=== PATIENT | male | born 1985 | race Caucasian/White ===

== ENCOUNTER 2020-04-16 09:10 | Emergency (ER) | payer OTHER ==
[~2020-04-16] VITALS: Ht 177.8 cm; Wt 89.2 kg
[2020-04-16] MEDS ORDERED: CLIN150C15 PO (09:34)
[2020-04-16] MEDS ORDERED: NS 1,000 ML IV ONE (10:00)
[2020-04-16] MEDS ORDERED: ISOVUE-370 76% 100ML VIAL As Ordered ONE (10:59)
[2020-04-16 11:11] LABS: BASO % 0.7 % (0.0-1.0); EOS # 0.1 10^3/uL (0.0-0.5); EOS % 2.3 % (0.0-3.0); HEMATOCRIT 45.6 % (42.0-52.0); HEMOGLOBIN 15.4 g/dl (13.5-17.5); LYMPH # 0.9 10^3/uL (1.5-5.0); LYMPH % 14.3 % (24.0-44.0); MEAN CORPUSCULAR HEMOGLOBIN 29.9 pg (27.0-33.0); MEAN CORPUSCULAR HGB CONC 33.8 g/dl (32.0-36.5); MEAN CORPUSCULAR VOLUME 88.5 fl (80.0-96.0); MONO # 0.5 10^3/uL (0.0-0.8); MONO % 8.5 % (0.0-5.0); NEUTROPHILS # 4.5 10^3/uL (1.5-8.5); PLATELET COUNT, AUTOMATED 281 10^3/uL (150-450); RED BLOOD COUNT 5.15 10^6/uL (4.30-6.10)
--- NOTE | 2020-04-16 11:19 | REP ---
INDICATION: umbilical mass and drainage; right flank pain w stones. COMPARISON: None TECHNIQUE: Axial contrast-enhanced images from the lung bases to the pubic symphysis using 100 cc Isovue 370 intravenous contrast material. Precontrast images of the abdomen along with coronal and sagittal reformations obtained. This CT examination was performed using the following dose reduction techniques: Automated exposure control, adjustment of mA and/or kv according to the patient's size, and the use of iterative reconstruction technique. FINDINGS: There is a 1.4 x 2.0 x 1.2 cm rim enhancing fluid collection in the periumbilical subcutaneous tissue with surrounding inflammatory stranding consistent with small abscess. There is mild right hydronephrosis and proximal hydroureter with 6 mm obstructing calculus and 3 mm calculus. Bilateral nonobstructing intrarenal calculi are identified measuring up to 6 mm. No associated perinephric stranding and no obstructing left ureteral calculus identified. Liver, spleen, pancreas, gallbladder, bilateral adrenal glands are normal. The enteric system is unremarkable. Normal terminal ileum and appendix identified in the right lower quadrant. Pelvis demonstrates normal bladder and age-appropriate prostate/seminal vesicles. No ascites. No adenopathy. Abdominal aorta and vasculature normal. Musculoskeletal structures are intact. IMPRESSION: 1. Small periumbilical abscess. 2. Early acute right-sided obstructive uropathy along with bilateral nonobstructing renal calculi. <Electronically signed by Hermelindo Ramsey > 04/16/20 0749
[2020-04-16 11:36] LABS: ALBUMIN 3.9 GM/DL (3.2-5.2); BILIRUBIN,DIRECT 0.1 MG/DL (0.0-0.2); BILIRUBIN,TOTAL 0.5 MG/DL (0.2-1.0); TOTAL PROTEIN 6.9 GM/DL (6.4-8.2)
[2020-04-16] MEDS ORDERED: NORC1TAB7 PO (13:33)
[2020-04-16] MEDS ORDERED: BACT800T5 PO (13:33)
[2020-04-16] MEDS ORDERED: IBUP-1022 PO (13:38)
[2020-04-16 13:45] VITALS: BP 122/73
--- NOTE | 2020-04-18 14:50 | ED PDOC ---
Post-Departure Follow-Up ct abd/p faxed to dr cloud for fu Marla Joradn MD Apr 18, 2020 14:50
== END 2020-04-16 14:04 | disposition home or self-care (01) ==
LOC: M ED 09:10
DX: L02.216 Cutaneous abscess of umbilicus (principal); N23 Unspecified renal colic; N20.0 Calculus of kidney; Z87.442 Personal history of urinary calculi
CPT/HCPCS: 74178; 80047; 80076; 81001; 82150; 83690; 85025; 87040; 87070; 87077; 87186; 93041; 96360; 99284; Q9967

== ENCOUNTER 2020-05-16 13:02 | Emergency (ER) | payer OTHER ==
[~2020-05-16] VITALS: Ht 177.8 cm; Wt 89.5 kg
[~2020-05-16 13:02] MED LIST: BACT800T5 PO; CLIN150C15 PO; IBUP-1022 PO; NORC1TAB7 PO
--- OUTSIDE RECORDS SUMMARY | 2020-05-16 13:08 | CCD | Continuity of Care Document ---
Author Author Tomasz COLUNGA DO Organization Unknown Address [address], [address] [place] [address] Phone [phone] Care Team Providers Care Rescue Worker Name Role Phone Bakari Beasley Unavailable Problems Description No Information Available Social History Type Date Description Comments Sex Unknown ETOH Use 3-6 A Week Tobacco Use Start: Unknown Denies Smoking Recreational Drug Use Denies Drug Use Allergies, Adverse Reactions, Alerts Description No Known Drug Allergies Medications Active Medications SIG Qnty Indications Ordering Provide r Date Bactrim DS 800-160mg Tablets 1 tab by mouth twice a day 14tabs Manuel Colunga DO Immunizations Description No Information Available Vital Signs Date Vital Result Comment 05/01/2020 10:10am BP Systolic 120 mmHg BP Diastolic 80 mmHg Height 70 inches 5'10" Weight 198.00 lb BMI (Body Mass Index) 28.4 kg/m2 [place] Body Weight 166 lb Weight 89.813 kg BSA (Body Surface Area) 2.08 m2 04/19/2020 1:16pm BP Systolic 114 mmHg BP Diastolic 80 mmHg Height 70 inches 5'10" Weight 197.00 lb BMI (Body Mass Index) 28.3 kg/m2 [place] Body Weight 166 lb Weight 89.359 kg BSA (Body Surface Area) 2.07 m2 Results Description No Information Available Procedures Description No Information Available Medical Devices Description No Information Available Encounters Type Date Location Provider Dx Diagnosis Office Visit 04/19/2020 1:20p [facility] Manuel Colunga DO L72.3 Sebaceous cyst Assessments Date Code Description Provider 04/19/2020 L72.3 Sebaceous cyst Manuel Colunga DO Plan of Treatment 04/19/2020 - Manuel Colunga DO* L72.3 Sebaceous cyst* Comments:* 35y/o male presents with swelling superior to the umbilicus along with some drainage from the inside of the umbilicus. Currently this is actively draining and is improving on its own. It appears to be an epidermal cyst with communication th rough a sinus tract to the umbilicus. It could also be a urachal cyst, but that is less likely at this point given the location. I recommend that he continue with warm compresses and abx for now. If there is still concern about drainage on Thursday, then he can call me to have an I+D done. I also discussed elective resection once the inflammation has subsided, but he would like to wait on that for now. Follow up as needed. Functional Status Description No Information Available Mental Status Description No Information Available Referrals Refer to Reason for Referral Status Appt Date Manuel Colunga D.O. DRAINAE FROM UMBILICUS, POSS EPIDER MOID CYST Scheduled 04/19/[address] [place] [address] [phone]
--- OUTSIDE RECORDS SUMMARY | 2020-05-16 13:09 | CCD ---
Author Author [facility] Organization [facility] Address Unknown Phone Unavailable Care Team Providers Care Licensed Real Estate Broker Name Role Phone Diana, Ruthie Kaba PA-C Unavailable Unavailable Diana, Ruthie Kaba PA-C Unavailable Unavailable Diana, Ruthie Kaba PA-C Unavailable Unavailable Diana, Ruthie Kaba PA-C Unavailable Unavailable Diana, Ruthie Kaba PA-C Unavailable Unavailable Diana, Ruthie Kaba PA-C Unavailable Unavailable Diana, Ruthie Kaba PA-C Unavailable Unavailable Diana, Ruthie Kaba PA-C Unavailable Unavailable Diana, Ruthie Kaba PA-C Unavailable Unavailable Diana, Ruthie Kaba PA-C Unavailable Unavailable Diana, Ruthie Kaba PA-C Unavailable Unavailable BRYDEN, A THANIA DO Unavailable Unavailable BRYDEN, A THANIA DO Unavailable Unavailable BRYDEN, A THANIA DO Unavailable Unavailable BRYDEN, A THANIA DO Unavailable Unavailable BRYDEN, A THANIA DO Unavailable Unavailable BRYDEN, A THANIA DO Unavailable Unavailable BRYDEN, A THANIA DO Unavailable Unavailable BRYDEN, A THANIA DO Unavailable Unavailable BRYDEN, A THANIA DO Unavailable Unavailable BRYDEN, A THANIA DO Unavailable Unavailable BRYDEN, A THANIA DO Unavailable Unavailable BRYDEN, A THANIA DO Unavailable Unavailable BRYDEN, A THANIA DO Unavailable Unavailable BRYDEN, A THANIA DO Unavailable Unavailable BRYDEN, A THANIA DO Unavailable Unavailable BRYDEN, A THANIA DO Unavailable Unavailable BRYDEN, A THANIA DO Unavailable Unavailable BRYDEN, A THANIA DO Unavailable Unavailable BRYDEN, A THANIA DO Unavailable Unavailable BRYDEN, A THANIA DO Unavailable Unavailable BRYDEN, A THANIA DO Unavailable Unavailable BRYDEN, A THANIA DO Unavailable Unavailable BRYDEN, A THANIA DO Unavailable Unavailable BRYDEN, A THANIA DO Unavailable Unavailable BRYDEN, A THANIA DO Unavailable Unavailable BRYDEN, A THANIA DO Unavailable Unavailable BRYDEN, A THANIA DO Unavailable Unavailable ALEXUS Maryellen MONTEIRO DO Unavailable Unavailable Re-disclosure Warning The records that you are about to access may contain information from federally-assisted alcohol or drug abuse programs. If such information is present, then the following federally mandated warning applies: This information has been disclosed to you from records protected by federal confidentiality rules (42 CFR part 2). The federal rules prohibit you from making any further disclosure of this information unless further disclosure is expressly permitted by the written consent of the person to whom it pertains or as otherwise permitted by 42 CFR part 2. A general authorization for the release of medical or other information is NOT sufficient for this purpose. The Federal rules restrict any use of the information to criminally investigate or prosecute any alcohol or drug abuse patient.The records that you are about to access may contain highly sensitive health information, the redisclosure of which is protected by Article 27-F of the [facility] Public Health law. If you continue you may have access to information: Regarding HIV / AIDS; Provided by facilities licensed or operated by the [facility] Office of Mental Health; or Provided by the [facility] Office for People With Developmental Disabilities. If such information is present, then the following [facility] mandated warning applies: This information has been disclosed to you from confidential records which are protected by state law. State law prohibits you from making any further disclosure of this information without the specific written consent of the person to whom it pertains, or as otherwise permitted by law. Any unauthorized further disclosure in violation of state law may result in a fine or [place] health [facility] sentence or both. A general authorization for the release of medical or other information is NOT sufficient authorization for further disc losure. Encounters Encounter Providers Location Date Indications Data Source(s ) Outpatient Attender: THANIA Ramirez/Mariah/Julien/Rashid ndefrain 04/19/2020 12:20:00 PM [facility] ([facility] dina, ) Emergency Attender: Sesar Ortiz PA-C 04/2020 04:32:00 PM EST - 04/06/2020 05:43:00 PM EST [facility] Patient discharged. Medications Medication Brand Name Start Date Product Form Dose Route Admi nistrative Instructions Pharmacy Instructions Status Indications Reaction Description Data Source(s) Sulfamethoxazole 800 MG / Trimethoprim 160 MG Oral Tablet [B actrim] Bactrim DS 04/26/2020 12:00:00 AM EST ORAL active [facility] ([facility], ) Insurance Providers Payer name Policy type / Coverage type Policy ID Covered green party ID Covered green party's relationship to nagy Policy Nagy Plan Information [employer] [id number] SP [id number] [employer] - O/P [id number] 18 [id number] Problems, Conditions, and Diagnoses Code Display Name Description Problem Type Effective Dates Data Source(s) [id number] Cellulitis of abdominal wall Cellulitis of abdominal w all Diagnosis 04/06/2020 04:32:00 PM [facility] R21 Rash and other nonspecific skin eruption Rash and other nonspecific skin eruption Diagnosis 04/06/2020 04:32:00 PM [facility] Results ID Date Data Source [id number] 04/06/2020 04:32:00 PM [facility] 1 OrderSheet [facility] Emergency Department [address] [place] [address] Phone #: ext- [phone] 04/06/2020 16:14 Patient: JAMISON VIDAL Sex: M : 1985 Age: 35yWEIGHT:86.1 kg (S) HEIGHT:70 inches (S) BMI:27.2ALLERGIES: No Known Drug AllergyCHIEF COMPLAINT: skin rashDIAGNOSIS: Cellulitis of skinLAB ORDERSOrder Description Priority Entered Acknowledged InitialedCulture, Wound STAT 17:04/06/2020 17:03 Pio(Abdominal Sesar MROENO; Marie JEFFERSWound)DIAGNOSTIC STUDY ORDERSOrder Description Priority Entered Acknowledged InitialedMEDICATION/IV/DRIP/FLUID ORDERSOrder Description Priority Entered Acknowledged InitialedRocephin IM 1000 17:01 04/06/2020 17:16 Parveenymg (NOW x1) Sesar MORENO; Marie RNClindamycin PO 17:01 04/06/2020 17:16 Sbchf195 mg (NOW x1) Sesar MORENO; Marie RNGENERAL ORDERSOrder Description Priority Entered Acknowledged Initialed[Electronically signed by Deysi Escobar R.N. (18:33 04/06/2020)][Electronically signed by Sesar Ortiz (18:34 04/06/2020)][Electronically locked by Deysi Escobar R.N. (18:33 04/06/2020)] Name Value Range Interpretation Code Description Data Priya rce(s) Supporting Document(s) ID Date Data Source [id number] 04/06/2020 04:32:00 PM EST [facility] 1 Medication Reconciliation Report [facility] Emergency Department [address] [place] [address] Phone #: ext- [phone] 04/06/2020 16:14 Patient: JAMISON VIDAL Sex: M : 1985 Age: 35yWeight: 86.1 kgHeight/Length: 70 in.BMI: 27.2ALLERGIES: No Known Drug AllergyThe patient's Home Medications are listed below:NONE.The source(s) of the original Home Medication information:patientThe following Medications were given to the patient in the Emergency Depa rtment:Rocephin [IM] IM 1 gm, administered: 17:13 04/06/2020lindamycin [PO] PO 300 mg, administered: 17:13 04/06/2020The following Medications were prescribed to the patient:clindamycin HCl 300 mg capsule Take 1 capsule every eight hours as directed for 10 days -- for cellulitis.Dispense 30 capsule. Refills: 0. Substitution permitted.Pharmacy - [facility] [id number] ; [place] [address]. . -- JOSH Seaman Name Value Range Interpretation Code Description Data Priya rce(s) Supporting Document(s) ID Date Data Source [id number] 04/06/2020 04:32:00 PM [facility] 1 Medication Administration Record [facility] Emergency Department [address] [place] [address] Phone #: ext [phone] 04/06/2020 16:14 Patient: JAMISON VIDAL Sex: M : 1985 Age: 35yWeight: 86.1 kgHeight/Length: 70 inBMI: 27.2ALLERGIES: No Known Drug Allergy Date/Time Medication Administered Medication OrderedGiven ROCEPHIN [IM] (CEFTRIAXONE Rocephin IM 1000 mg (NOW x1)17:13 04/06/2020 SODIUM)Pio Salazar RN Dose: 1 gm IMGiven CLINDAMYCIN [PO] Clindamycin PO 300 mg (NOW x1)17:13 04/06/2020 Dose: 300 mg Capsules Yolanda Salazar RN Name Value Range Interpretation Code Description Data [facility] rce(s) Supporting Document(s) ID Date Data Source [id number] 04/06/2020 04:32:00 PM [facility] 1 General Instructions [facility] Emergency Department [address] [place] [address] Phone #: ext- [phone] 04/06/2020 16:14 Patient: JAMISON VIDAL Sex: M : 1985 Age: 35yCellulitis of the abdominal wall (umbilicas). No foreign body present.INSTRUCTIONSNo strenuous activity until better. Rest at home for two days.Do not smoke. No alcohol.Warnings: Further evaluation is necessary. It is very important to follow up with a healthcare provider.GENERAL WARNINGS: Return or contact your physician immediately if your condition worsens orchanges unexpectedly, if not improving as expected, or if other problems arise. Specifically return if pain,vomiting, bleeding, breathing difficulty or fever. worsening rash.Your Current Medications: .No home medication.Prescription Medications:clindamycin HCl 300 mg capsule Take 1 capsule every eight hours as directed for 10 days -- for cellulitis.Dispense 30 capsule. Refills: 0. Substitution permitted.Pharmacy - [facility] [id number] ; [place] [id number]. .Follow-up:Follow up with your healthcare provider in three days even if well. Call for the next available appointment.Reason for referral: evaluation. Summary of care provided to patient via paper.Understanding of the discharge instructions verbalized by patient. Expected course of illness, dischargeinstructions, activity level, prescriptions x1, follow-up appointment and risks and benefits of treatmentreviewed with patient and understanding verbalized. Agrees to plan of care. ADDITIONAL INFORMATIONCellulitisCellulitis is an infection of the deep layers of skin. A break in the skin, such as a cut or scratch, can letbacteria under the skin. If the bacteria get to deep layers of the skin, it can be serious. If not treated,cellulitis can get into the bloodstream and lymph nodes. The infection can then spread throughout thebody. This causes serious illness. 2 General Instructions [facility] Emergency Department [address] [place] [address] Phone #: ext- [phone] 04/06/2020 16:14 Patient: JAMISON VIDAL Sex: M : 1985 Age: 35yCellulitis causes the affected skin to become red, swollen, warm, and sore. The reddened areas havea visible border. An open sore may leak fluid (pus). You may have a fever, chills, and pain.Cellulitis is treated with antibiotics taken for 7 to 10 days. An open sore may be cleaned and coveredwith cool wet gauze. Symptoms should get better 1 to 2 days after treatment is started. Make sure totake all the antibiotics for the full number of days until they are gone. Keep taking the medicine even ifyour symptoms go away.Home careFollow these tips: Limit the use of the part of your body with cellulitis. If the infection is on your leg, keep your leg raised while sitting. This helps reduce swelling. Take all of the antibiotic medicine exactly as directed until it is gone. Don't miss any doses, especially during the first 7 days. Don't stop taking the medicine when your symptoms get better. Keep the affected area clean and dry. Wash your hands with soap and clean, running water before and after touching your skin. Anyone else who touches your skin should also wash his or her hands. Don't share towels.Follow-up careFollow up with your healthcare provider, or as advised. If your infection doesn't go away on the firstantibiotic, your healthcare provider will prescribe a different one.When to seek medical adviceCall your healthcare provider right away if any of these occur: Red areas that spread Swelling or pain that gets worse Fluid leaking from the skin (pus) Fever higher of 100.4 F (38.0 C) or higher after 2 days on antibiotics 2063-1210 [employer]. [address] [place] [address]. All rights reserved. This information is not intended as asubstitute for professional medical care. Always follow your healthcare professional's instructions. You have been given the following additional information: 3 General Instructions [facility] Emergency Department [address] [place] [address] Phone #: ext- [phone] 04/06/2020 16:14 Patient: YOUNG JAMISON J Sex: M : 1985 Age: 35yCellulitisNo strenuous activity until better. Rest at home for two days.(Electronically signed by JOSH Seaman 04/06/2020 18:34) Name Value Range Interpretation Code Description Data Priya rce(s) Supporting Document(s) ID Date Data Source [id number] 04/06/2020 04:32:00 PM EST [facility] 1 Clinical Report - Nurses [facility] Emergency Department [address] [place] [address] Phone #: [phone] jjv- [phone] 04/06/2020 16:14 Patient: JAMISON VIDAL Sex: M : 1985 Age: 35yTRIAGEArrived by private vehicle. Historian: patient. Unaccompanied.Triage time: 16:17 04/06/2020. Acuity: LEVEL 3.Chief Complaint: ABDOMINAL PAIN.Alert. No acute distress.Onset. (5 days ago). ( Pt did an ab exercise and woke up the next day with some discomfort. He justthought it was fr om exercising, but since then has noticed some drainage from his belly button. He haswashed it several times and applied hydrogen peroxide and some neosporin. He continues to havedrainage and increased pain.). He has had abdominal pain.Treatment ROOFING LABORER:(hydrogen peroxide). --16:26 04/06/20 Deysi Escobar R.N.16:17 04/06/20. HR: 72. RR: 16. O2 saturation: 97% on room air. Temp: 96.6 F (oral). Pain level now:05/16. --16:26 04/06/20 Deysi Escobar R.N.16:40 04/06/20. BP: 125/81. MAP: 95. --16:46 04/06/20 Deysi Escobar R.N.Weight: 86.1 kg stated. Height/Length: 70 inches Per Patient. BMI: 27.2. --16:16 04/06/20 Deysi Escobar R.N.MedicationsNone. --16:20 04/06/20 Deysi Escobar R.N.AllergiesNo Known Drug Allergy. --16:20 04/06/20 Deysi Escobar R.N.PROBLEMS:Nephrolithiasis. --16:21 04/06/20 Deysi Escobar R.N.Medication/allergy information source: the patient. --16:26 04/06/20 Deysi Escobar R.N.ADDITIONAL SURGERIES:no known surgeries.HistoryPAST MEDICAL HX: Immunizations: up-to-date.SOCIAL HX: Former smoker. Regular alcohol use; consumes beer weekly. No drug use. No recent 2 Clinical Report - Nurses [facility] Emergency Department [address] [place] [address] Phone #: ext- [phone] 04/06/2020 16:14 Patient: JAMISON VIDAL Sex: M : 1985 Age: 35y travel. No known contact with a sick individual. He was offered HIV testing but declined. Patient education was provided. He was offered hepatitis C testing but declined. Patient education was provided. He has not t raveled outside the [place] Infectious disease exposure: No infectious disease exposure. (COVID screen negative). Patient is not a known carrier of tuberculosis, hepatitis, HIV, MRSA or VRE. Patient is not a known carrier of CRE. SELF HARM ASSESSMENT: Self harm assessment was performed. The patient answered "no" to the question(s) "Do you have thoughts of harming or killing yourself?", "Do you have a plan for harming or killing yourself?" and "Have you recently had thoughts about harming or killing others?". ABUSE ASSESSMENT: Abuse assessment. The patient had positive responses to the question(s) "Do you feel safe in your home?" (yes). Abuse denied. No suspicion of abuse. No report of abuse. NUTRITIONAL RISK ASSESSMENT: The nutritional risk assessment revealed no deficiencies. FUNCTIONAL ASSESSMENT: Functional assessment: no impairments noted. LEARNING NEEDS ASSESSMENT: The learning needs assessment revealed no barriers. FALL RISK ASSESSMENT: Fall risk assessment completed. No risk factors identified. SKIN INTEGRITY ASSESSMENT: Skin integrity risk assessment completed. No skin integrity risk identified. --16:26 04/06/20 Deysi Escobar R.N. Intervent ions Identification band on patient. --16:26 04/06/20 Deysi Escobar R.N. late entry - 16:41 04/06/20. To treatment room. --16:46 04/06/20 Deysi Escobar R.N.PHYSICAL ASSESSMENTAmbulatory to room. ( 1705 umbilicus bloody drainage culture obtained and sent to lab).GENERAL / NEURO / PSYCH: Alert. Oriented X 4.RESPIRATORY: Respirations not labored. Breath sounds within normal limits.CVS: Capillary refill less than 2 seconds.GI / : Abdomen soft and nontender.SKIN: Skin is warm and dry. --17:19 04/06/20 Pio Salazar RN.NURSING PROGRESS NOTES17:13 04/06/2020 Rocephin (cefTRIAXone Sodium) IM 1 gm given. Given in the left deltoid. Allergiesverified and confirmed 5 rights. Information reviewed with patient. --17:16 04/06/20 Pio Salazar RN 17:13 04/06/2020 Clindamycin PO Capsules 300 mg given. Allergies verified and confirmed 5 rights. Information reviewed with patient. --17:16 04/06/20 Pio Salazar RN 3 Clinical Report - Nurses [facility] Emergency Department [address] [place] [address] Phone #: ext- [phone] 04/06/2020 16:14 Patient: JAMISON VIDAL Sex: M : 1985 Age: 35y Patient gowned. Head of bed elevated 60 degrees. Checked patient name and birthdate: patient confirmed. Wound swabbed for aerobic culture. Specimen labeled in the presence of the patient (preston 9599). Call light placed in reach. Bed placed in lowest position. Brakes of bed on. Patient ready for evaluation- PA notified. --17:17 04/06/20 Pio Salazar RN.DISPOSITION / DISCHARGE late entry - 17:43 04/06/20. Departure time: late entry - 17:43 04/06/2020. Condition at departure: improved. No learning barriers present. Discharge instructions provided and reviewed with the patient. Reviewed medication(s) side effects, precautions, dosing and course information. Prescription(s) sent electronically to pharmacy (Clindamycin). Reviewed referral to a primary care physician for followup. Work note given. Patient verbalized understanding. Written instructions provided in [place]er. 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 He was discharged home and unaccompanied at time of discharge. He left ambulatory and via private vehicle. Patient driving. --18:33 04/06/20 Deysi Escobar R.N. 17:40 04/06/20. BP: 126/84. MAP: 98. HR: 68. RR: 16. O2 saturation: 98% on room air. Temp: 97 F (oral). Pain level now: 06/13. --18:33 04/06/20 Deysi Escobar R.N.Locked/Released at 04/06/2020 18:33 by Deysi Escobar R.N. Name Value Range Interpretation Code Description Data Priya rce(s) Supporting Document(s) ID Date Data Source [id number] 04/06/2020 04:32:00 PM EST [facility] 1 Clinical Report - Physicians/Mid Levels [facility] Emergency Department [address] [place] [address] Phone #: ext- [phone] 04/06/2020 16:14 Patient: JAMISON VIDAL Sex: Ben : 1985 Age: 35y Time Seen: 17:04/06/2020. Arrived- By private vehicle. Historian- patient. Disposition decision: 17:04/06/2020.HISTORY OF PRESENT ILLNESS Chief Complaint: SKIN RASH. This started about 5 days ago; Pt states after doing abdominal work out 5 days ago he noticed redness and irritation with some discharge from and around belly button. No fever, no NVD. No trauma. It is described as itchy and mildly painful. Not burning. It has been located on the abdomen. No cause has been identified. No recent medication, insect bite or food exposure. Was not recently exposed to poison elan or poison oak. Similar symptoms previously. None. Recent medical care: Not recently seen/assessed.REVIEW OF SYSTEMSNo fever, chills, sore throat, cough or difficulty breathing. No hoarseness, lump in throat, enlarged lymphnodes, headache or eye irritation. No chest pain, abdominal pain, nausea, diarrhea or difficulty withurination. No genital lesions, joint pain or vomiting.PAST HISTORYSee nurses notes. Tetanus immunization status is up-to-date. Problems: Nephrolithiasis. Additional Surgeries: no known surgeries. Medications: None. Allergies: No Known Drug Allergy.SOCIAL HISTORYNever smoker. Occasional alcohol use. No drug use. No recent travel.ADDITIONAL NOTESThe nursing notes have been reviewed with agreement regarding the chief complaint, HPI, ROS, PMH andpatient medications and allergies.PHYSICAL EXAM 2 Clinical Report - Physicians/Mid Levels [facility] Emergency Department [address] [place] [address] Phone #: ext- [phone] 04/06/2020 16:14 Patient: JAMISON VIDAL Sex: Ben : 1985 Age: 35y Vital Signs: 04/06/2020 16:40 BP: 125/81. MAP: 95. 04/06/2020 16:17 HR: 72. RR: 16. O2 saturation: 97% on room air. Temp: 96.6 F. Pain level now: 05/16. Have been reviewed as normal and appear to be correct. Blood pressure normal. Mean arterial pressure- normal. Heart rate normal. Respiratory rate normal. Temper ature normal. Oxygen saturation normal. Appearance: Alert. Oriented X3. No acute distress. Eyes: Pupils equal, round and reactive to light. Conjunctivae and eyelids normal. ENT: Ears normal. Nose normal. Pharynx normal. Neck: Neck supple. CVS: Normal heart rate and rhythm. Heart sounds normal. Respiratory: No respiratory distress. Breath sounds normal. Chest nontender. Abdomen: Nontender. No organomegaly. Skin: Skin warm and dry. Normal skin color. Normal skin turgor. Small area of cellulitis with tenderness and erythema (umbilicus, scant amount serosangous drainage present). Mild, well-demarcated, erythematous, macular skin rash on the abdomen. The rash is macular and erythematous. There is weeping and tenderness. Extremities: Normal external inspection. Extremities nontender. Neuro: Oriented X 3. No motor deficit. No sensory deficit.PROGRESS AND PROCEDURESDisposition: Discharged home in good and improved condition.Discharge decision based on the following: patient's condition is improved; patient is ambulatory; patient isactive; patient's pain is controlled; patient's exam is improved; improving condition on repeat evaluation;social support is adequate; transportation is available; follow-up is available; clinical impression isconsistent with outpatient treatment.CLINICAL IMPRESSION Cellulitis of the abdominal wall (umbilicas). No foreign body present.INSTRUCTIONS No strenuous activity until better. Rest at home for two days. Do not smoke. No alcohol. Warnings: Further evaluation is necessary. It is very important to follow up with a healthcare provider. GENERAL WARNINGS: Return or contact your physician immediately if your condition worsens or changes unexpectedly, if not improving as expected, or if other problems arise. Specifically return if pain, vomiting, bleeding, breathing difficulty or fever. worsening rash. Your Current Medications: . No home medication. 3 Clinical Report - Physicians/Mid Levels [facility] Emergency Department [address] [place] [address] Phone #: ext- [phone] 04/06/2020 16:14 Patient: JAMISON VIDAL Sex: M : 1985 Age: 35y Prescription Medications: clindamycin HCl 300 mg capsule Take 1 capsule every eight hours as directed for 10 days -- for cellulitis. Dispense 30 capsule. Refills: 0. Substitution permitted. Pharmacy - [facility] [id number] ; [place] [address]. . Follow-up: Follow up with your healthcare provider in three days even if well. Call for the next available appointment. Reason for referral: evaluation. Summary of care provided to patient via paper. Understanding of the discharge instructions verbalized by patient. Expected course of illness, discharge instructions, activity level, prescriptions x1, follow-up appointment and risks and benefits of treatment reviewed with patient and understanding verbalized. Agrees to plan of care.(Electronically signed by JOSH Seaman 04/06/2020 18:34) Name Value Range Interpretation Code Description Data Priya rce(s) Supporting Document(s) ID Date Data Source [id number] 04/11/2020 09:07:00 AM EST [facility] Name Value Range Interpretation Code Description Data Priya rce(s) Supporting Document(s) CULTURE WOUND [facility] _CULTURE WOUND_$$[id number]$$[id number] DATE/TIME: 04/11/2020 09:06Culture: CULTURE WOUND Status: FinalAerobic Bacterial Culture: P1No growth in 36 - 48 hours. Previous result entered on 04/10/2020 11:25 ET No growth after 18-24 hours. Previous result entered on 04/10/2020 06:10 ET No growth after 18-24 hours.P1 Test performed by: [email or web address] #: [id number] [address] [id number] [facility] [id number] Director : Madhu Welsh MD NPI #:Heddle Machine Operator : 04/10/[email or web address] REF -- Continued on next page --Patient: YOUNG Hendricks Order: [id number] Page 2Culture: CULTURE WOUND Status: Final ==== 04/11/[email or web address] REF ID Date Data Source [id number] 02/25/2020 12:00:00 AM EST [facility] Name Value Range Interpretation Code Description Data Priya rce(s) Supporting Document(s) SARS-CoV2 Rapid Antigen [facility] This lab was ordered by [facility] and reported by [facility]. Procedure Vital Signs ID Date Data Source UNK Name Value Range Interpretation Code Description Data Source(s) Body surface area Derived from formula 2.08 m2 2.08 m2 [facility] ([facility]) Body weight 89.813 kg 89.813 kg [facility] ([facility]) Damar body weight 166 [lb_av] 166 [lb_av] [facility] ([facility]) Body mass index (BMI) [Ratio] 28.4 kg/m2 28.4 k g/m2 [facility] ([facility]) Body weight 198.00 [lb_av] 198.00 [[facility]_av] [facility] Body height 70 [in_i] 70 [in_i] [facility] ([facility]) 5'10" Diastolic blood pressure 80 mm[Hg] 80 mm[Hg] [facility] ([facility]) Systolic blood pressure 120 mm[Hg] 120 mm[Hg] [facility] Body surface area Derived from formula 2.07 m2 2.07 m2 [facility] ([facility]) Body weight 89.359 kg 89.359 kg [facility] ([facility]) Damar body weight 166 [lb_av] 166 [lb_av] [facility] Body mass index (BMI) [Ratio] 28.3 kg/m2 28.3 k g/m2 [facility] ([facility]) Body weight 197.00 [lb_av] 197.00 [lb_av] [facility] Body height 70 [in_i] 70 [in_i] [facility] ([facility]) 5'10" Diastolic blood pressure 80 mm[Hg] 80 mm[Hg] [facility] ([facility]) Systolic blood pressure 114 mm[Hg] 114 mm[Hg] [facility] ([facility])
[2020-05-16] MEDS ORDERED: KETOROLAC 30 MG/ML 1ML VIAL IV ONE (14:00)
[2020-05-16] MEDS ORDERED: ONDANSETRON 4MG/2ML VIAL IV ONE (14:00)
[2020-05-16 14:10] LABS: BASO % 0.3 % (0.0-1.0); EOS % 0.1 % (0.0-3.0); HEMATOCRIT 43.9 % (42.0-52.0); HEMOGLOBIN 14.7 g/dl (13.5-17.5); LYMPH # 0.7 10^3/uL (1.5-5.0); LYMPH % 9.1 % (24.0-44.0); MEAN CORPUSCULAR HEMOGLOBIN 29.5 pg (27.0-33.0); MEAN CORPUSCULAR HGB CONC 33.5 g/dl (32.0-36.5); MONO # 0.5 10^3/uL (0.0-0.8); MONO % 6.5 % (0.0-5.0); NEUTROPHILS # 6.5 10^3/uL (1.5-8.5); NEUTROPHILS % 83.6 % (36.0-66.0); PLATELET COUNT, AUTOMATED 238 10^3/uL (150-450); RED BLOOD COUNT 4.99 10^6/uL (4.30-6.10); WHITE BLOOD COUNT 7.7 10^3/uL (4.0-10.0)
[2020-05-16 14:40] LABS: ALT/SGPT 64 U/L (12-78); BILIRUBIN,DIRECT < 0.1 MG/DL (0.0-0.2); BILIRUBIN,TOTAL 0.4 MG/DL (0.2-1.0); BLOOD UREA NITROGEN 16 MG/DL (7-18); CALCIUM LEVEL 9.3 MG/DL (8.5-10.1); CARBON DIOXIDE LEVEL 28 MEQ/L (21-32); CHLORIDE LEVEL 104 MEQ/L (98-107); CREATININE FOR GFR 1.36 MG/DL (0.70-1.30); GLOMERULAR FILTRATION RATE > 60.0 (>60); GLUCOSE, FASTING 134 MG/DL (70-100); LIPASE 115 U/L (73-393); POTASSIUM SERUM 4.3 MEQ/L (3.5-5.1); SODIUM LEVEL 139 MEQ/L (136-145); TOTAL PROTEIN 7.3 GM/DL (6.4-8.2)
--- NOTE | 2020-05-16 15:10 | REP ---
INDICATION: right flank pain; assess for stone/hydronephrosis. COMPARISON: CT 04/16/2020. TECHNIQUE: Real-time sonographic evaluation of the kidneys is performed. FINDINGS: Renal cortical echogenicity pattern is normal bilaterally and contours are smooth. Multiple subcentimeter intrarenal calculi are seen bilaterally. There is mild right hydronephrosis. There is no left hydronephrosis. With duplex Doppler evaluation resistive index right kidney 0.42 and left kidney 0.47. There is mild proximal harder ureter on the right. Probable 9 mm cyst is seen in the mid left kidney. The urinary bladder is unremarkable. Ureteral jets are not visualized with Doppler color evaluation. The right kidney measures 11.3 x 6.0 x 5.4 cm. Left renal dimensions are 11.3 x 4.9 x 5 point cm. IMPRESSION: Mild right hydroureteronephrosis. Multiple intrarenal calculi bilaterally. <Electronically signed by Manuel Mccann > 05/16/20 [id number]
[2020-05-16] MEDS ORDERED: KETO10TAB PO (16:57)
[2020-05-16] MEDS ORDERED: CIPR-249 PO (16:57)
[2020-05-16] MEDS ORDERED: ONDA4TAB6 PO (16:57)
[2020-05-16] MEDS ORDERED: CIPROFLOXACIN 500MG TABLET PO ONE (17:00)
[2020-05-16] MEDS ORDERED: KETOROLAC TROMETHAMINE 10 MG TAB PO ONE (17:00)
[2020-05-16 17:09] VITALS: BP 118/68
== END 2020-05-16 17:11 | disposition home or self-care (01) ==
LOC: M ED 13:02
DX: N23 Unspecified renal colic (principal); Z87.442 Personal history of urinary calculi
CPT/HCPCS: 76775; 80048; 80076; 81001; 83690; 85025; 87086; 96374; 96375; 99284; J1885; J2405